=== PATIENT | female | born 1985 | race Caucasian/White ===

== ENCOUNTER 2017-05-28 14:31 | Emergency (ER) | payer MEDICAID ==
[2017-05-28 15:41] VITALS: BP 101/63
--- NOTE | 2017-05-28 16:07 | UC ---
Complaint Female HPI - HPI Summary HPI Summary: Patient has increased urinary frequency, some low back pain. no fever, no flank pain, sometimes feels ok, sometims symptomatic. - History Of Current Complaint Chief Complaint: UCGU Stated Complaint: URINARY Time Seen by Provider: 05/28/17 15:42 Hx Obtained From: Patient Hx Last Menstrual Period: 05/15/17 ?: No Onset/Duration: Sudden Onset, Lasting Days Timing: Lasting Days Severity Initially: Mild Severity Currently: Mild Character: Burning Aggravating Factor(s): Urination Associated Signs And Symptoms: Positive: Back Pain - Allergies/Home Medications Allergies/Adverse Reactions: Allergies Allergy/AdvReac Type Severity Reaction Status Date / Time Sulfamethoxazole Allergy Severe Hives Verified 05/28/17 15:41 w/Trimethoprim [From Bactrim] Home Medications: Home Medications NK [No Home Medications Reported] 05/28/17 [History Confirmed 05/28/17] PMH/Surg Hx/FS Hx/Imm Hx Previously Healthy: Yes - Surgical History Surgical History: Yes Surgery Procedure, Year, and Place: T&A, D&C-02 - Family History Known Family History: Positive: Hypertension - Social History Alcohol Use: None Substance Use Type: None Smoking Status (MU): Never Smoked Tobacco - Immunization History Most Recent Influenza Vaccination: no Review of Systems Constitutional: Negative Skin: Negative Eyes: Negative ENT: Negative Respiratory: Negative Cardiovascular: Negative Gastrointestinal: Negative Genitourinary: Dysuria, Frequency Motor: Negative Neurovascular: Negative Musculoskeletal: Negative Neurological: Negative Psychological: Negative Is Patient Immunocompromised?: No All Other Systems Reviewed And Are Negative: Yes Physical Exam Triage Information Reviewed: Yes Appearance: Well-Appearing, Well-Nourished, Pain Distress Vital Signs: Initial Vital Signs Temp 98.3 F 05/28/17 15:37 Pulse 76 05/28/17 15:37 Resp 14 05/28/17 15:37 BP 101/63 05/28/17 15:37 Pulse Ox 100 05/28/17 15:37 Vital Signs Reviewed: Yes Eye Exam: Normal ENT Exam: Normal Neck exam: Normal Respiratory Exam: Normal Cardiovascular Exam: Normal Abdomen Description: Positive: Nontender, No Organomegaly, Soft, CVA Tenderness (R) - neg, CVA Tenderness (L) - neg Bowel Sounds: Positive: Present Musculoskeletal Exam: Normal Neurological Exam: Normal Psychological Exam: Normal Skin Exam: Normal Complaint Female Dx - Course Course Of Treatment: hx obtained, exam performed ,meds reviewed, UA was neg, sent for culture, talked with patient who decided to wait for culture, if she remains symptomatic when culture returns will treat at that time. - Differential Dx/Diagnosis Differential Diagnosis/HQI/PQRI: Ureteral Stone, Urinary Tract Infection Provider Diagnoses: UTI Discharge - Discharge Plan Condition: Stable Disposition: HOME Patient Education Materials: Urinary Tract Infection in Women (ED) Referrals: Rita Moreno MD [Primary Care Provider] - Additional Instructions: 1. increase fluid intake and continue with the cranberry pills. 2. If you remain symtpomatic when culture returns we will treat at that time.
== END 2017-05-28 16:16 | disposition home or self-care (01) ==
LOC: UCCORT 14:31
DX: N39.0 Urinary tract infection, site not specified (principal); Z88.2 Allergy status to sulfonamides
CPT/HCPCS: 81003; 87086; 99211; G0463

== ENCOUNTER 2017-06-21 08:39 | Emergency (ER) | payer MEDICAID ==
[2017-06-21 09:13] VITALS: BP 103/60
--- NOTE | 2017-06-21 09:49 | UC ---
Eye Complaint HPI - HPI Summary HPI Summary: Right eye crusting and irritation. She has had URI symptoms lately. Daughter is also sick. No FB or trauma. She wears contacts but has thrown them out and thrown out the case. - History of Current Complaint Chief Complaint: UCEye Stated Complaint: RIGHT EYE COMPLAINT Time Seen by Provider: 06/21/17 09:41 Hx Obtained From: Patient Hx Last Menstrual Period: 06/09/17 Onset/Duration: Gradual Onset, Lasting Hours Timing: Constant Location of Injury: Conjunctiva Character: Sharp - irritation. Mild. Aggravating Factor(s): Nothing Alleviating Factor(s): Nothing Associated Signs And Symptoms: Positive: Drainage (Purulent). Negative: Photophobia, Vision Impairment Bilateral, Vision Impairment Right, Vision Impairment Left, Fever, Swelling - Allergies/Home Medications Allergies/Adverse Reactions: Allergies Allergy/AdvReac Type Severity Reaction Status Date / Time Sulfamethoxazole Allergy Severe Hives Verified 06/21/17 09:09 w/Trimethoprim [From Bactrim] Home Medications: Home Medications Multiple Vitamin [Multivitamins] 1 cap PO DAILY 06/21/17 [History Confirmed ] PMH/Surg Hx/FS Hx/Imm Hx Previously Healthy: Yes - Surgical History Surgical History: Yes Surgery Procedure, Year, and Place: T&A, D&C-02 - Family History Known Family History: Positive: Hypertension - Social History Lives: With Family Alcohol Use: None Substance Use Type: None Smoking Status (MU): Never Smoked Tobacco - Immunization History Most Recent Influenza Vaccination: no Review of Systems Eyes: Drainage, Eye Redness All Other Systems Reviewed And Are Negative: Yes Physical Exam Triage Information Reviewed: Yes Appearance: Well-Appearing, No Pain Distress, Well-Nourished Vital Signs: Initial Vital Signs Temp 98.1 F 06/21/17 09:10 Pulse 58 06/21/17 09:10 Resp 16 06/21/17 09:10 BP 103/60 06/21/17 09:10 Eye Exam: Normal Eyes: Positive: Conjunctiva Inflamed. Negative: Discharge ENT: Positive: Normal ENT inspection, TMs normal, Uvula midline. Negative: Pharynx normal, Pharyngeal erythema, Nasal congestion, Nasal drainage, Tonsillar swelling, Tonsillar exudate, Trismus, Muffled voice, Hoarse voice, Dental tenderness, Sinus tenderness Neck exam: Normal Neck: Positive: Supple, Nontender, No Lymphadenopathy Respiratory: Positive: No respiratory distress, No accessory muscle use. Negative: Respiratory distress Cardiovascular: Positive: Brisk Capillary Refill Abdomen Description: Negative: Distended Musculoskeletal: Positive: Strength Intact, ROM Intact, No Edema Neurological: Positive: Alert, Muscle Tone Normal. Negative: Fatigued Skin: Negative: rashes Eye Complaint Course/Dx - Differential Dx/Diagnosis Provider Diagnoses: conjunctivitis. Discharge - Discharge Plan Condition: Good Disposition: HOME Prescriptions: Ciprofloxacin 0.3% OPTH.ROSALIO* [Cipro 0.3% Opth*] 2 drop BOTH EYES Q4H #1 btl Patient Education Materials: Conjunctivitis (ED) Referrals: Rita Moreno MD [Primary Care Provider] -
== END 2017-06-21 09:52 | disposition home or self-care (01) ==
LOC: UCCORT 08:39
DX: H10.31 Unspecified acute conjunctivitis, right eye (principal); Z88.2 Allergy status to sulfonamides
CPT/HCPCS: 99212; G0463

== ENCOUNTER 2019-01-16 14:15 | Emergency (ER) | payer OTHER ==
[2019-01-16 14:59] VITALS: BP 121/65
--- NOTE | 2019-01-16 15:06 | ED ---
Throat Pain/Nasal Congestion - HPI Summary HPI Summary: pt presents to for evaluation of her sinus congestion. she states that she has had congestion, pain for over 1 week. her kids have had similar symptoms and are on antibiotics. she is a mother of 3. her youngest one is 9 months and is still breast feeding. - History of Current Complaint Chief Complaint: UCRespiratory Hx Obtained From: Patient Onset/Duration: Lasting Weeks - 1 Severity: Mild Cough: Nonproductive - Epiglottits Risk Factors Epiglottis Risk Factors: Negative - Allergies/Home Medications Allergies/Adverse Reactions: Allergies Allergy/AdvReac Type Severity Reaction Status Date / Time MS Sulfamethoxazole Allergy Severe Hives Verified 06/21/17 09:09 w/Trimethoprim [From Bactrim] Home Medications: Home Medications Fluticasone NASAL SPRAY 50MCG* [Flonase NASAL SPRAY 50MCG*] 2 spray BOTH NARES DAILY 01/16/19 [History Confirmed 01/16/19] PMH/Surg Hx/FS Hx/Imm Hx Previously Healthy: Yes - Surgical History Surgery Procedure, Year, and Place: T&A, D&C-02 Infectious Disease History: No Infectious Disease History: Denies: Traveled Outside the [place] in Last 30 Days - Family History Known Family History: Positive: Hypertension - Social History Alcohol Use: None Substance Use Type: Reports: None Smoking Status (MU): Never Smoked Tobacco Review of Systems Constitutional: Negative Eyes: Negative Positive: Nasal Discharge Cardiovascular: Negative Respiratory: Negative Gastrointestinal: Negative Genitourinary: Negative Musculoskeletal: Negative Skin: Negative Neurological: Negative Psychological: Normal All Other Systems Reviewed And Are Negative: No Physical Exam Triage Information Reviewed: Yes Vital Signs On Initial Exam: Initial Vitals Temp Pulse Resp BP Pulse Ox 99.7 F 77 10 121/65 100 01/16/19 14:56 01/16/19 14:56 01/16/19 14:56 01/16/19 14:56 01/16/19 14:56 Vital Signs Reviewed: Yes Appearance: Positive: Well-Appearing, No Pain Distress, Well-Nourished Skin: Positive: Warm, Dry Eyes: Positive: Normal, EOMI, SARAH ENT: Positive: Normal ENT inspection, Sinus tenderness Neck: Positive: Supple, Nontender Respiratory/Lung Sounds: Positive: Clear to Auscultation, Breath Sounds Present Cardiovascular: Positive: Normal, RRR Abdomen Description: Positive: Nontender, Soft Bowel Sounds: Positive: Present Musculoskeletal: Positive: Normal, Strength/ROM Intact Neurological: Positive: Normal, Sensory/Motor Intact, Alert, Oriented to Person Place, Time, CN Intact II-III Psychiatric: Positive: Normal AVPU Assessment: Alert Diagnostics - Vital Signs Vital Signs Temp Pulse Resp BP Pulse Ox 01/16/19 14:56 99.7 F 77 10 121/65 100 - Laboratory Lab Statement: Any lab studies that have been ordered have been reviewed, and results considered in the medical decision making process. EENT Course/Dx - Course Course Of Treatment: pt's exam and history is consistent with a sinusitis. will rx abx and discharge. pt encouraged to also take tylenol and motrin for pain and discomfort and to use over the counter sinus decongestants. - Diagnoses Provider Diagnoses: Sinusitis Discharge - Sign-Out/Discharge Documenting (check all that apply): Patient Departure All imaging exams completed and their final reports reviewed: No Studies - Discharge Plan Condition: Stable Disposition: HOME Prescriptions: Amoxicillin 500 mg PO TID #30 capsule Patient Education Materials: Sinusitis (ED) Referrals: Melonie Saldaña MD [Primary Care Provider] - Additional Instructions: You may take tylenol and motrin for any sinus pain. follow up with your doctor. return if worse or any new symptoms. - Billing Disposition and Condition Condition: STABLE Disposition: Home
== END 2019-01-16 15:35 | disposition home or self-care (01) ==
LOC: UCCORT 14:15
DX: J32.9 Chronic sinusitis, unspecified (principal); Z88.1 Allergy status to other antibiotic agents
CPT/HCPCS: 99212; G0463

== ENCOUNTER 2019-08-16 12:46 | Emergency (ER) | payer OTHER ==
[2019-08-16 14:05] VITALS: BP 110/64
--- NOTE | 2019-08-16 14:14 | UC ---
Respiratory Complaint HPI - HPI Summary HPI Summary: 34 yo with symptoms consistent with CHARITO 2 weeks ago, with malaise, fever and cough. - History of Current Complaint Chief Complaint: UCRespiratory Stated Complaint: COUGH Time Seen by Provider: 08/16/19 13:59 Hx Obtained From: Patient Hx Last Menstrual Period: 07/28/19 Onset/Duration: Gradual Onset, Lasting Weeks, Worse Since - 2 days of increased cough and shortness of breath, low grade fever. Timing: Constant Severity Initially: Moderate Severity Currently: Moderate Pain Intensity: 5 Character: Cough: Productive Aggravating Factors: Deep Breaths, Recumbent Position Alleviating Factors: Nothing Associated Signs And Symptoms: Positive: Dyspnea, Fever, Nasal Congestion, Hoarseness - Allergies/Home Medications Allergies/Adverse Reactions: Allergies Allergy/AdvReac Type Severity Reaction Status Date / Time sulfamethoxazole Allergy Hives Verified 08/16/19 14:00 [From Bactrim] trimethoprim [From Bactrim] Allergy Hives Verified 08/16/19 14:00 Home Medications: Home Medications Acetaminophen [Acetaminophen Extra Strength] 1,000 mg PO Q6H PRN 08/16/19 [ History Confirmed 08/16/19] Guaifenesin/Dextromethorphan [Mucinex Dm Maximum Streng 60-1200 mg] 1 tab PO Q12H PRN 08/16/19 [History Confirmed 08/16/19] PMH/Surg Hx/FS Hx/Imm Hx Previously Healthy: Yes - Surgical History Surgical History: Yes Surgery Procedure, Year, and Place: D&C 2001; Tonsillectomy, ~1995 - Family History Known Family History: Positive: Hypertension - Social History Occupation: Employed Full-time - [employer] with 3 children Lives: With Family Alcohol Use: None Substance Use Type: None Smoking Status (MU): Never Smoked Tobacco - Immunization History Most Recent Influenza Vaccination: no Review of Systems All Other Systems Reviewed And Are Negative: Yes Constitutional: Positive: Fever, Fatigue ENT: Positive: Sore Throat, Sinus Congestion Respiratory: Positive: Shortness Of Breath, Cough Cardiovascular: Negative: Palpitations, Chest Pain Gastrointestinal: Negative: Vomiting, Diarrhea Genitourinary: Positive: Negative Motor: Positive: Negative Neurovascular: Positive: Negative Musculoskeletal: Positive: Negative Neurological: Positive: Headache Psychological: Positive: Negative Is Patient Immunocompromised?: No Physical Exam Triage Information Reviewed: Yes Appearance: No Pain Distress, Ill-Appearing - looks fatigued and unwell Vital Signs: Initial Vital Signs Temp 99 F 08/16/19 13:57 Pulse 94 08/16/19 13:57 Resp 16 08/16/19 13:57 BP 110/64 08/16/19 13:57 Pulse Ox 100 08/16/19 13:57 Eyes: Positive: Conjunctiva Clear ENT: Positive: Pharyngeal erythema, TM dull - left serous fluid, Hoarse voice Neck: Positive: Supple, Nontender, No Lymphadenopathy Respiratory: Positive: No respiratory distress, Decreased breath sounds, Rhonchi - coarse breath sounds throughout Cardiovascular: Positive: RRR, No Murmur Musculoskeletal Exam: Normal Neurological Exam: Normal Psychological Exam: Normal Skin Exam: Normal Respiratory Course/Dx - Course Course Of Treatment: Progression of illness suggestive of influenza with progression to lower respiratory infection. Will treat with azithromycin and tessalong perles. - Differential Dx/Diagnosis Differential Diagnosis/HQI/PQRI: Bronchitis, Influenza, Lower Resp Infection, Sinusitis Provider Diagnosis: Lower respiratory tract infection Discharge ED - Sign-Out/Discharge Documenting (check all that apply): Patient Departure All imaging exams completed and their final reports reviewed: No Studies - Discharge Plan Condition: Stable Disposition: HOME Prescriptions: Azithromyxin SHADE (NF) [Z-Shade (Zithromax) 250 mg tabs #6] 2 tab PO .TODAY, THEN 1 DAILY #6 tab Benzonatate 200 mg PO TID PRN #30 capsule PRN Reason: Cough Patient Education Materials: Acute Bronchitis (ED) Referrals: Chris Agustin MD [Primary Care Provider] - Additional Instructions: Please take the full course of antibiotics, and increase rest and maintain a high fluid intake. Use tessalon perles as needed for suppression of cough. Follow up if you have persistent fever or shortness of breath. - Billing Disposition and Condition Condition: STABLE Disposition: Home
== END 2019-08-16 14:27 | disposition home or self-care (01) ==
LOC: UCCORT 12:46
DX: J22 Unspecified acute lower respiratory infection (principal); R51 Headache; Z88.2 Allergy status to sulfonamides
CPT/HCPCS: 99212; G0463